=== PATIENT | male | born 1965 | race Caucasian/White ===

== ENCOUNTER 2019-10-10 18:13 | Emergency (ER) | payer BC ==
[2019-10-10] MEDS ORDERED: Acetaminophen/HYDROcodone 325-5 MG Tab PO ONE ×2 (18:14→18:44)
[2019-10-10] MEDS ORDERED: Cyclobenzaprine 10 MG Tab PO ONE (18:45)
--- NOTE | 2019-10-10 18:53 | EDM.PDOC ---
ED HPI GENERAL MEDICAL PROBLEM - General Chief Complaint: Back Pain or Injury Stated Complaint: BACK PAIN Time Seen by Provider: 10/10/19 18:35 Source of Information: Reports: Patient, RN History Limitations: Reports: Other (no old records) - History of Present Illness INITIAL COMMENTS - FREE TEXT/NARRATIVE: 54 yo male with a remote hx of lumbar surgery presents with a few day hx of low back pain. Has tried ibuprofen and heat without relief. No bowel or bladder dysfunction. No radiation down his legs. Typically does not have back issues since his surgery. His drove him here today. 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: Reports: NSAIDS right lower back Pain Score (Numeric/FACES): 7 - Related Data Allergies Allergy/AdvReac Type Severity Reaction Status Date / Time lisinopril Allergy Cough Verified 10/10/19 18:33 Home Meds: Home Meds Acetaminophen/HYDROcodone [[place] 325-5 MG] 1 - 2 tab PO Q6H PRN #10 tab 10/10/19 [Rx] Cyclobenzaprine [Flexeril] 10 mg PO TID PRN #14 tab 10/10/19 [Rx] ED ROS GENERAL - Review of Systems Review Of Systems: See Below Constitutional: Reports: No Symptoms : Reports: No Symptoms Musculoskeletal: Reports: Back Pain (Right low back pain) Skin: Reports: No Symptoms Neurological: Reports: No Symptoms ED EXAM,LOWER BACK PAIN/INJURY - Physical Exam Exam: See Below Exam Limited By: No Limitations General Appearance: Alert, WD/WN, No Apparent Distress Back Exam: Normal Inspection, Decreased Range of Motion, Other (well healed midline surgical scar. Pain is to the R sacrum with palpation. ). No: Full Range of Motion, CVA Tenderness (R), CVA Tenderness (L), Muscle Spasm, Paraspinal Tenderness, Vertebral Tenderness Extremities: Normal Inspection, Normal Range of Motion, Non-Tender, No Pedal Edema Neurological: Alert, Normal Mood/Affect, CN II-XII Intact, No Motor/Sensory Deficits, Oriented x 3 Psychiatric: Normal Affect, Normal Mood Skin Exam: Warm, Dry, Intact, Normal Color, No Rash Course - Vital Signs Last Recorded V/S: Last Vital Signs Temp 36.4 C 10/10/19 18:13 Pulse 82 10/10/19 18:13 Resp 17 10/10/19 18:13 BP 157/73 H 10/10/19 18:13 Pulse Ox 97 10/10/19 18:13 - Orders/Labs/Meds Meds: Medications Discontinued Medications Generic Name Dose Route Start Last Admin Trade Name Freq PRN Reason Stop Dose Admin Hydrocodone Bitart/Acetaminophen 1 tab 10/10/19 18:44 [place] 325-5 Mg PO 10/10/19 18:45 ONETIME ONE Cyclobenzaprine HCl 10 mg 10/10/19 18:45 Flexeril PO 10/10/19 18:46 ONETIME ONE Departure - Departure Time of Disposition: 19:00 Disposition: Home, Self-Care 01 Condition: Fair Clinical Impression: Strain of sacrum Qualifiers: Encounter type: initial encounter Qualified Code(s): S39.012A - Strain of muscle, fascia and tendon of lower back, initial encounter - Discharge Information *PRESCRIPTION DRUG MONITORING PROGRAM REVIEWED*: No *COPY OF PRESCRIPTION DRUG MONITORING REPORT IN PATIENT EMILY: No Prescriptions: Cyclobenzaprine [Flexeril] 10 mg PO TID PRN #14 tab PRN Reason: Pain Acetaminophen/HYDROcodone [[place] 325-5 MG] 1 - 2 tab PO Q6H PRN #10 tab PRN Reason: Pain Instructions: Lumbosacral Strain Referrals: Chandana Camacho MD [Primary Care Provider] - Additional Instructions: ibuprofen 400 mg every 6 hrs with food for pain relief. Add [place] OR acetaminophen for added relief. Flexeril every 8 hrs as needed. No lifting, bending, or twisting. Try topical creams like Noam-Adams or similar products for added relief. Recheck with your provider if not better by mid week. Sepsis Event Note (ED) - Evaluation Sepsis Screening Result: No Definite Risk - Focused Exam Vital Signs: Vital Signs Temp Pulse Resp BP Pulse Ox 10/10/19 18:13 36.4 C 82 17 157/73 H 97
== END 2019-10-10 19:05 | disposition home or self-care (01) ==
LOC: FB.ED 18:13
DX: S39.012A Strain of muscle, fascia and tendon of lower back, initial encounter (principal); Z88.8 Allergy status to other drugs, medicaments and biological substances; X58.XXXA Exposure to other specified factors, initial encounter
CPT/HCPCS: 99283; A9270